=== PATIENT | male | born 1965 | race Caucasian/White ===

== ENCOUNTER 2019-07-31 15:04 | Emergency (ER) | payer OTHER ==
[~2019-07-31] VITALS: Ht 177.8 cm; Wt 104.3 kg
[2019-07-31] MEDS ORDERED: HYDROCHLOROTH12.5 M1 PO (15:13)
[2019-07-31] MEDS ORDERED: COZAAR 25 MG TA25 M1 PO (15:13)
[2019-07-31] MEDS ORDERED: METFORMIN HCL500 MG PO (15:13)
[2019-07-31] MEDS ORDERED: NORCO 5-325 TA1 EAC1 PO (16:30)
[2019-07-31] MEDS ORDERED: KEFLEX500 M1 PO (16:30)
[2019-07-31 16:48] VITALS: BP 110/70
== END 2019-07-31 16:49 | disposition home or self-care (01) ==
LOC: M.ERS 15:04
DX: S61.211A Laceration without foreign body of left index finger without damage to nail, initial encounter (principal); I10 Essential (primary) hypertension; E11.9 Type 2 diabetes mellitus without complications; W26.0XXA Contact with knife, initial encounter; Y93.89 Activity, other specified; Y92.89 Other specified places as the place of occurrence of the external cause; Y99.8 Other external cause status